=== PATIENT | female | born 1955 | race Caucasian/White ===

== ENCOUNTER 2021-05-13 21:22 | Observation (INO) | payer BC, MEDICARE ==
[~2021-05-13] VITALS: Ht 165.1 cm; Wt 55.9 kg
[2021-05-13 22:22] LABS: BASOPHILS % (AUTO) 0.5 % (0-1); EOSINOPHILS # (AUTO) 0.1 X10'3 (0-0.9); HEMATOCRIT 39.9 % (35.0-45.0); HEMOGLOBIN 13.7 g/dl (12.0-16.0); LYMPHOCYTES # (AUTO) 1.6 X10'3 (1.1-4.8); LYMPHOCYTES % (AUTO) 22.9 % (21-51); MEAN CORPUSCULAR HEMOGLOBIN 34.4 PG (27.0-31.0); MEAN CORPUSCULAR HGB CONC 34.3 g/dL (33.0-36.5); MEAN CORPUSCULAR VOLUME 100.4 FL (78-98); MEAN PLATELET VOLUME 6.8 FL (7.4-10.4); MONOCYTES # (AUTO) 0.7 X10'3 (0-0.9); MONOCYTES % (AUTO) 9.5 % (2-12); NEUTROPHILS # (AUTO) 4.7 X10'3 (1.8-7.7); NEUTROPHILS % (AUTO) 66.1 % (42-75); PLATELET COUNT 213 X10'3 (140-440); RED BLOOD COUNT 3.97 X10'6 (4.20-5.60); RED CELL DISTRIBUTION WIDTH 12.8 % (11.5-14.5)
[2021-05-13 22:34] LABS: PARTIAL THROMBOPLASTIN TIME 25 SECONDS (22-32)
[2021-05-13 22:36] LABS: ALANINE AMINOTRANSFERASE 66 U/L (12-78); ALBUMIN 4.4 G/DL (3.4-5.0); ALBUMIN/GLOBULIN RATIO 1.5 (1.1-1.5); ALKALINE PHOSPHATASE 94 IU/L (46-116); ANION GAP 9 (8-16); ASPARTATE AMINO TRANSFERASE 55 U/L (10-37); BILIRUBIN,TOTAL 0.3 MG/DL (0.1-1.0); BLOOD UREA NITROGEN 16 MG/DL (7-18); BUN/CREATININE RATIO 16.8 (6.6-38.0); CALCIUM 8.3 MG/DL (8.5-10.1); CHLORIDE 103 MMOL/L (99-107); CREATININE 0.95 MG/DL (0.40-0.90); GLUCOSE 96 MG/DL (70-104); POTASSIUM 3.8 MMOL/L (3.5-5.1); SODIUM 140 MMOL/L (135-145); TOTAL CARBON DIOXIDE 28.1 MMOL/L (24-32); TOTAL PROTEIN 7.4 G/DL (6.4-8.2); eGFR 59 ML/MIN
[2021-05-13] MEDS ORDERED: LOSA25TA96 PO (23:49)
[2021-05-14] MEDS ORDERED: magnesium hydroxide 30ml (MOM) UD suspension PO PRN (00:25)
[2021-05-14] MEDS ORDERED: mag hydrox/Alum hydrox/simeth 30ml oral suspension PO PRN (00:25)
[2021-05-14] MEDS ORDERED: acetaminophen 325mg tablet PO PRN ×2 (00:25)
[2021-05-14] MEDS ORDERED: HYDROcodone/acetaminophen 10/325mg tab PO PRN (00:25)
[2021-05-14] MEDS ORDERED: HYDROcodone/acetaminophen 5mg/325mg tablet PO PRN (00:25)
[2021-05-14] MEDS ORDERED: ondansetron/PF 4mg/2ml inj IV PRN (00:25)
[2021-05-14] MEDS ORDERED: morphine 2 MG/ML inj. syringe IV PRN ×2 (00:25)
[2021-05-14 01:31] LABS: HEMOGLOBIN A1C 4.9 % (4.5-6.2)
--- NOTE | 2021-05-14 06:10 | NUR ---
MRI pre-screening complete
[2021-05-14] MEDS ORDERED: aspirin 325mg tablet, delayed-release (Ecotrin) PO SCH (08:00)
[2021-05-14] MEDS ORDERED: clopidogrel 75mg tablet PO SCH (08:00)
[2021-05-14 10:13] VITALS: BP 162/70
[2021-05-14] MEDS ORDERED: ATOR20TA66 PO (11:09)
--- NOTE | 2021-05-14 14:18 | NUR ---
PAGER ID: [phone] MESSAGE: Karina CADENA [phone] RE: Socorro Fernando [id number]. Please call D radiology. [phone]. Thank you
[2021-05-14 16:37] VITALS: BP_SYST 149; BP_SYST 158; BP_SYST 167; BP_DIAS 64; BP_DIAS 72; BP_DIAS 84
[2021-05-14] MEDS ORDERED: ASPI81TA52 PO (16:44)
[2021-05-14] MEDS ORDERED: ATOR40TA PO (16:44)
--- NOTE | 2021-05-14 17:12 | NUR ---
Pt discharged [facility] at 1712. Pt insisted on walking down to exit. Pt was accompanied by . Discharge instructions reviewed with pt. Iv removed, no complications. All questions/concerns answered/reviewed with pt. Pt discharged with in private vehicle in stable condition.
== END 2021-05-14 17:25 | disposition home or self-care (01) ==
LOC: ER 21:24 → ED HOLD 05-14 00:24 → ORTHO 4S 05-14 10:00
PROVIDERS: ADMIT Internal Medicine; ATTEND Family Medicine
DX: S00.03XA Contusion of scalp, initial encounter (principal); I63.9 Cerebral infarction, unspecified; R55 Syncope and collapse; F10.20 Alcohol dependence, uncomplicated; E78.00 Pure hypercholesterolemia, unspecified; I10 Essential (primary) hypertension; R06.02 Shortness of breath; Z98.890 Other specified postprocedural states; Z88.2 Allergy status to sulfonamides; Z79.899 Other long term (current) drug therapy; Y90.9 Presence of alcohol in blood, level not specified; W18.39XA Other fall on same level, initial encounter; Y93.K1 Activity, walking an animal; Y92.89 Other specified places as the place of occurrence of the external cause; Y99.8 Other external cause status
CPT/HCPCS: 36415; 70450; 70544; 70547; 70551; 71045; 80053; 82948; 83036; 83880; 85025; 85610; 85651; 85730; 87081; 92508; 92616; 93005; 93306; 93880; 97116; 97161; 97530; 99285; G0378